=== PATIENT | male | born 1985 | race Two or more races ===

== ENCOUNTER 2023-11-30 07:53 | Emergency (ER) | payer OTHER, BC ==
[~2023-11-30] VITALS: Ht 182.9 cm; Wt 172.0 kg
[2023-11-30 07:55] VITALS: O2SAT 97
[2023-11-30] MEDS ORDERED: METH-653 MT (09:02)
[2023-11-30] MEDS: ACETAMINOPHEN 325MG TABLET PO ONE (09:44)
[2023-11-30 11:06] VITALS: BP 150/97; PULSE 88; RESP 16; TEMP 36.83628; O2SAT 97
== END 2023-11-30 11:25 | disposition home or self-care (01) ==
LOC: ER 08:18
DX: S09.90XA Unspecified injury of head, initial encounter (principal); M54.9 Dorsalgia, unspecified; V43.52XA Car driver injured in collision with other type car in traffic accident, initial encounter; Y92.410 Unspecified street and highway as the place of occurrence of the external cause; Y93.89 Activity, other specified; Y99.8 Other external cause status
CPT/HCPCS: 99284